=== PATIENT | male | born 1955 | race Caucasian/White ===

== ENCOUNTER 2018-04-23 08:46 | Inpatient (IN) | payer MEDICAID, OTHER ==
[2018-04-23] VITALS (7 sets, daily range): BP systolic 128–150; BP diastolic 70–100
[~2018-04-23] VITALS: Ht 185.4 cm; Wt 84.3 kg
[2018-04-23 10:29] LABS: BASOPHILS # (AUTO) 0.05 x10^3/uL (0-0.1); BASOPHILS % (AUTO) 1 % (0-1); EOSINOPHILS # (AUTO) 0.09 x10^3/uL (0-0.4); EOSINOPHILS % (AUTO) 1 % (1-7); LYMPHOCYTES # (AUTO) 0.78 x10^3/uL (1-3.4); LYMPHOCYTES % (AUTO) 9 % (22-44); MD NO; MEAN CORPUSCULAR HEMOGLOBIN 29.4 pg (27.5-34.5); MEAN CORPUSCULAR HGB CONC 32.7 g/dL (33.2-36.2); MEAN CORPUSCULAR VOLUME 89.8 fL (81-97); MEAN PLATELET VOLUME 8.3 fL (7.4-10.4); MONOCYTES # (AUTO) 0.53 x10^3/uL (0.2-0.8); MONOCYTES % (AUTO) 6 % (2-9); NEUTROPHILS # (AUTO) 7.52 x10^3/uL (1.8-6.8); NEUTROPHILS % (AUTO) 84 % (42-75); PLATELET COUNT 327 x10^3/uL (130-400); RED BLOOD COUNT 2.56 x10^6/uL (4.38-5.82); RED CELL DISTRIBUTION WIDTH 13.4 % (9.4-14.8)
[2018-04-23 10:41] LABS: ALBUMIN 3.5 g/dL (3.4-5.0)
[2018-04-23 10:45] LABS: CHLORIDE 105 mmol/L (98-107)
[2018-04-23 10:50] LABS: ALANINE AMINOTRANSFERASE 12 U/L (12-78); ALKALINE PHOSPHATASE 75 U/L (45-117); BILIRUBIN,TOTAL 0.4 mg/dL (0.2-1.0); TOTAL PROTEIN 9.3 g/dL (6.4-8.2)
[2018-04-23 11:06] LABS: ANION GAP 22 mmol/L (5-15)
--- NOTE | 2018-04-23 11:21 | NUR ---
FINANCIAL ADVISER: TO ROOM FROM LOBBY, VIA W/C
[2018-04-23] MEDS ORDERED: PANTOPRAZOLE 80 MG in SODIUM CHLORIDE 0.9% 50 ML IVPB ONE (11:39)
[2018-04-23] MEDS ORDERED: PANTOPRAZOLE 80 MG in SODIUM CHLORIDE 0.9% 100 ML IV SCH (11:39)
--- NOTE | 2018-04-23 11:45 | NUR ---
PT REPORTS 70LB WEIGHT LOSS OVER PAST MONTH, INCREASED GENERALIZED FATIGUE, NAUSEA, POOR APPETITE, BLOOD IN URINE. PT ON MONITOR, VSS, PIV ESTABLISHED AND LABS DRAWN. POC DISCUSSED AND QUESTIONS ANSWERED.
[2018-04-23] MEDS ORDERED: SODIUM POLY SULFONATE UDC 15 GM/60 ML PO ONE (12:30)
[2018-04-23] MEDS ORDERED: INSULIN REGULAR 100 UNITS/ML, 3ML VIAL IVPush ONE (12:30)
[2018-04-23] MEDS: SODIUM BICARB 8.4%, 50ML SYRINGE IVPush ONE (12:30)
[2018-04-23] MEDS ORDERED: SODIUM CHLORIDE FLUSH 10ML SYR IVF PRN (12:30)
[2018-04-23] MEDS ORDERED: DEXTROSE 50%, 50ML SYRINGE IVPush ONE (12:30)
[2018-04-23] MEDS ORDERED: CALCIUM CHLORIDE 10%, 10ML SYR IVPush ONE (12:30)
[2018-04-23] MEDS ORDERED: DEXTROSE 50%, 50ML SYRINGE ONE (12:37)
[2018-04-23] MEDS ORDERED: CALCIUM CHLORIDE 10%, 10ML SYR ONE (12:37)
[2018-04-23] MEDS ORDERED: INSULIN REGULAR 100 UNITS/ML, 3ML VIAL ONE (12:38)
--- NOTE | 2018-04-23 12:52 | NUR ---
LUNCH RN: LARGE BORE 18GPIV PLACED, PROTONIX BOLUS AND DRIP STARTED. SODIUM BICARB, INSULIN, DEXTROSE, CALCIUM CHLORIDE GIVEN IN PIV WITH NO ISSUE. PT VSS AT THIS TIME. NO EKG CHANGES.
[2018-04-23] MEDS ORDERED: LIDOCAINE 2%,20 ML JEL.PF.APP MM ONE ×2 (12:58→13:00)
[2018-04-23] MEDS ORDERED: SODIUM CHLORIDE FLUSH 10ML SYR IVF ONE (13:00)
--- NOTE | 2018-04-23 13:14 | NUR ---
LUNCH RN: SHETTY CATH INSERTED AT THIS TIME.
[2018-04-23 13:57] LABS: CULTURE INDICATED? YES; MICROSCOPIC INDICATED
[2018-04-23] MEDS ORDERED: LABETALOL 5MG/ML, 20ML IVPush PRN (14:00)
[2018-04-23] MEDS ORDERED: BISACODYL 10 MG SUPP PR PRN (14:00)
[2018-04-23] MEDS ORDERED: POLYETHYLENE GLYCOL 17 GM PACKET PO PRN (14:00)
[2018-04-23] MEDS ORDERED: ONDANSETRON ODT 4 MG PO PRN (14:00)
[2018-04-23] MEDS ORDERED: hydrALAzine 20 MG/ML, 1ML IVPush PRN (14:00)
[2018-04-23] MEDS ORDERED: DOCUSATE 100 MG CAPSULE PO PRN (14:00)
[2018-04-23 14:32] LABS: ANION GAP 19 mmol/L (5-15); CALCIUM 9.9 mg/dL (8.5-10.1); CHLORIDE 108 mmol/L (98-107)
[2018-04-23] MEDS: ONDANSETRON 2MG/ML, 2ML IVPush PRN (14:40)
[2018-04-23] MEDS ORDERED: ONDANSETRON 2MG/ML, 2ML ONE (14:40)
[2018-04-23] MEDS: PANTOPRAZOLE 40 MG IV IVPush SCH ×2 (17:07→21:14)
[2018-04-23] MEDS: LACTATED RINGERS 1,000 ML IV SCH (17:09)
[2018-04-23 20:13] LABS: OCCULT BLOOD POSITIVE (NEGATIVE)
[2018-04-23 21:31] LABS: ANION GAP 22 mmol/L (5-15); CALCIUM 9.9 mg/dL (8.5-10.1); CHLORIDE 110 mmol/L (98-107)
[2018-04-24] MEDS: LACTATED RINGERS 1,000 ML IV SCH ×3 (00:38→15:15)
[2018-04-24 01:27] VITALS: BP 122/78
[2018-04-24] MEDS: CEFTRIAXONE PMX 1GM/50ML 50 ML IV SCH (01:46)
[2018-04-24 05:32] LABS: MEAN CORPUSCULAR HEMOGLOBIN 29.2 pg (27.5-34.5); MEAN CORPUSCULAR HGB CONC 33.5 g/dL (33.2-36.2); MEAN CORPUSCULAR VOLUME 87.3 fL (81-97); MEAN PLATELET VOLUME 8.1 fL (7.4-10.4); PLATELET COUNT 258 x10^3/uL (130-400); RED BLOOD COUNT 2.68 x10^6/uL (4.38-5.82); RED CELL DISTRIBUTION WIDTH 15.7 % (9.4-14.8)
[2018-04-24 05:53] LABS: BASOPHILS # (AUTO) 0.03 x10^3/uL (0-0.1); BASOPHILS % (AUTO) 1 % (0-1); EOSINOPHILS # (AUTO) 0.13 x10^3/uL (0-0.4); EOSINOPHILS % (AUTO) 2 % (1-7); LYMPHOCYTES # (AUTO) 0.74 x10^3/uL (1-3.4); LYMPHOCYTES % (AUTO) 13 % (22-44); MD SCAN; MONOCYTES # (AUTO) 0.44 x10^3/uL (0.2-0.8); MONOCYTES % (AUTO) 8 % (2-9); NEUTROPHILS # (AUTO) 4.56 x10^3/uL (1.8-6.8); NEUTROPHILS % (AUTO) 77 % (42-75)
[2018-04-24 07:22] LABS: CHLORIDE 111 mmol/L (98-107)
[2018-04-24 07:41] LABS: % IRON SATURATION 33 % (20-55); ALANINE AMINOTRANSFERASE 12 U/L (12-78); ALBUMIN 2.9 g/dL (3.4-5.0); ALKALINE PHOSPHATASE 62 U/L (45-117); ANION GAP 18 mmol/L (5-15); BILIRUBIN,TOTAL 0.3 mg/dL (0.2-1.0); IRON LEVEL 76 mcg/dL (65-175); TOTAL IRON BINDING CAPACITY 230 mcg/dL (250-450); TOTAL PROTEIN 7.6 g/dL (6.4-8.2)
[2018-04-24 07:48] VITALS: BP 121/79
[2018-04-24] MEDS ORDERED: CEFTRIAXONE PMX 1GM/50ML 50 ML IV SCH (08:00)
[2018-04-24] MEDS: ONDANSETRON 2MG/ML, 2ML IVPush PRN ×2 (09:37→18:46)
[2018-04-24] MEDS: PANTOPRAZOLE 40 MG IV IVPush SCH ×2 (09:38→21:07)
[2018-04-24] MEDS ORDERED: DILTIAZEM 5 MG/ML, 5ML IVPush PRN (11:00)
[2018-04-24] MEDS ORDERED: DILTIAZEM 5 MG/ML, 10ML IVPush PRN (11:05)
[2018-04-24] MEDS: SODIUM BICARBONATE 650 MG TABLET PO SCH ×2 (11:25→21:07)
[2018-04-24] MEDS: ERGOCALCIFEROL 50,000 UNIT CAPSULE PO SCH (11:26)
[2018-04-24 13:26] VITALS: BP 103/71
[2018-04-24 19:43] VITALS: BP 128/86
[2018-04-25] VITALS (10 sets, daily range): BP systolic 116–150; BP diastolic 73–86
[2018-04-25] MEDS: LACTATED RINGERS 1,000 ML IV SCH ×2 (00:11→17:28)
[2018-04-25] MEDS: CEFTRIAXONE PMX 1GM/50ML 50 ML IV SCH (01:29)
[2018-04-25] MEDS: ONDANSETRON 2MG/ML, 2ML IVPush PRN (02:38)
[2018-04-25 06:30] LABS: CHLORIDE 107 mmol/L (98-107)
[2018-04-25 06:31] LABS: MEAN CORPUSCULAR HEMOGLOBIN 29.1 pg (27.5-34.5); MEAN CORPUSCULAR HGB CONC 33.6 g/dL (33.2-36.2); MEAN CORPUSCULAR VOLUME 86.6 fL (81-97); PLATELET COUNT 207 x10^3/uL (130-400); RED BLOOD COUNT 2.14 x10^6/uL (4.38-5.82); RED CELL DISTRIBUTION WIDTH 15.6 % (9.4-14.8)
[2018-04-25 06:51] LABS: BASOPHILS # (AUTO) 0.01 x10^3/uL (0-0.1); BASOPHILS % (AUTO) 0 % (0-1); EOSINOPHILS # (AUTO) 0.25 x10^3/uL (0-0.4); EOSINOPHILS % (AUTO) 4 % (1-7); LYMPHOCYTES # (AUTO) 0.49 x10^3/uL (1-3.4); LYMPHOCYTES % (AUTO) 7 % (22-44); MD MORPH REVIEW ONLY; MONOCYTES # (AUTO) 0.38 x10^3/uL (0.2-0.8); MONOCYTES % (AUTO) 5 % (2-9); NEUTROPHILS # (AUTO) 5.97 x10^3/uL (1.8-6.8); NEUTROPHILS % (AUTO) 84 % (42-75)
[2018-04-25 06:52] LABS: ANISOCYTOSIS 1+; OVALOCYTES 1+
[2018-04-25 06:53] LABS: <PLATELET ESTIMATE> ADEQUATE; <PLT MORPHOLOGY> NORMAL PLT MORPH; ECHINOCYTES 1+; TEAR DROPS 1+
[2018-04-25 07:01] LABS: ALANINE AMINOTRANSFERASE 13 U/L (12-78); ALBUMIN 2.4 g/dL (3.4-5.0); ALKALINE PHOSPHATASE 57 U/L (45-117); ANION GAP 18 mmol/L (5-15); BILIRUBIN,TOTAL 0.3 mg/dL (0.2-1.0); CALCIUM 8.1 mg/dL (8.5-10.1); TOTAL PROTEIN 6.5 g/dL (6.4-8.2)
[2018-04-25 09:31] LABS: % IRON SATURATION 23 % (20-55); IRON LEVEL 32 mcg/dL (65-175); TOTAL IRON BINDING CAPACITY 139 mcg/dL (250-450)
[2018-04-25] MEDS: SODIUM BICARBONATE 650 MG TABLET PO SCH ×2 (09:52→20:43)
[2018-04-25] MEDS: PANTOPRAZOLE 40 MG IV IVPush SCH ×2 (09:52→20:43)
[2018-04-25] MEDS ORDERED: PROMETHAZINE 25 MG/ML, 1ML IM PRN (11:30)
[2018-04-26 00:56] VITALS: BP 125/71
[2018-04-26] MEDS: CEFTRIAXONE PMX 1GM/50ML 50 ML IV SCH (01:24)
[2018-04-26] MEDS: LACTATED RINGERS 1,000 ML IV SCH ×3 (04:17→22:34)
[2018-04-26 05:02] LABS: ANION GAP 19 mmol/L (5-15); CALCIUM 8.1 mg/dL (8.5-10.1); CHLORIDE 106 mmol/L (98-107)
[2018-04-26 05:08] LABS: MEAN CORPUSCULAR HEMOGLOBIN 29.5 pg (27.5-34.5); MEAN CORPUSCULAR HGB CONC 34.5 g/dL (33.2-36.2); MEAN CORPUSCULAR VOLUME 85.5 fL (81-97); MEAN PLATELET VOLUME 8.3 fL (7.4-10.4); PLATELET COUNT 206 x10^3/uL (130-400); RED BLOOD COUNT 2.67 x10^6/uL (4.38-5.82); RED CELL DISTRIBUTION WIDTH 15.6 % (9.4-14.8)
[2018-04-26 05:57] LABS: BASOPHILS # (AUTO) 0.04 x10^3/uL (0-0.1); BASOPHILS % (AUTO) 0 % (0-1); EOSINOPHILS # (AUTO) 0.11 x10^3/uL (0-0.4); EOSINOPHILS % (AUTO) 1 % (1-7); LYMPHOCYTES # (AUTO) 1.37 x10^3/uL (1-3.4); LYMPHOCYTES % (AUTO) 15 % (22-44); MD SCAN; MONOCYTES # (AUTO) 0.82 x10^3/uL (0.2-0.8); MONOCYTES % (AUTO) 9 % (2-9); NEUTROPHILS # (AUTO) 6.63 x10^3/uL (1.8-6.8); NEUTROPHILS % (AUTO) 74 % (42-75)
[2018-04-26 08:30] VITALS: BP 134/76
[2018-04-26] MEDS: SODIUM BICARBONATE 650 MG TABLET PO SCH ×3 (09:23→21:42)
[2018-04-26] MEDS: PANTOPRAZOLE 40 MG IV IVPush SCH ×2 (09:23→21:41)
[2018-04-26 13:40] VITALS: BP 140/86
[2018-04-26] MEDS: METOPROLOL TARTRATE 25 MG TABLET PO SCH ×2 (15:51→21:42)
[2018-04-26 15:58] VITALS: BP 148/85
[2018-04-26 19:28] VITALS: BP 155/87
[2018-04-27] MEDS: CEFTRIAXONE PMX 1GM/50ML 50 ML IV SCH (00:50)
[2018-04-27 00:52] VITALS: BP 123/77
[2018-04-27 05:44] VITALS: BP 133/77
[2018-04-27] MEDS: METOPROLOL TARTRATE 25 MG TABLET PO SCH ×2 (05:48→17:36)
[2018-04-27 05:54] LABS: BASOPHILS # (AUTO) 0.06 x10^3/uL (0-0.1); BASOPHILS % (AUTO) 1 % (0-1); EOSINOPHILS # (AUTO) 0.18 x10^3/uL (0-0.4); EOSINOPHILS % (AUTO) 2 % (1-7); LYMPHOCYTES # (AUTO) 1.33 x10^3/uL (1-3.4); LYMPHOCYTES % (AUTO) 16 % (22-44); MD NO; MEAN CORPUSCULAR HEMOGLOBIN 29.7 pg (27.5-34.5); MEAN CORPUSCULAR HGB CONC 34.8 g/dL (33.2-36.2); MEAN CORPUSCULAR VOLUME 85.2 fL (81-97); MEAN PLATELET VOLUME 8.6 fL (7.4-10.4); MONOCYTES # (AUTO) 0.82 x10^3/uL (0.2-0.8); MONOCYTES % (AUTO) 10 % (2-9); NEUTROPHILS % (AUTO) 72 % (42-75); PLATELET COUNT 216 x10^3/uL (130-400); RED BLOOD COUNT 2.91 x10^6/uL (4.38-5.82); RED CELL DISTRIBUTION WIDTH 15.6 % (9.4-14.8)
[2018-04-27 06:03] LABS: ALBUMIN 2.4 g/dL (3.4-5.0); ANION GAP 15 mmol/L (5-15); CALCIUM 7.8 mg/dL (8.5-10.1); CHLORIDE 107 mmol/L (98-107)
[2018-04-27 07:25] VITALS: BP 143/87
[2018-04-27] MEDS: LACTATED RINGERS 1,000 ML IV SCH ×2 (09:35→21:17)
[2018-04-27] MEDS: PANTOPRAZOLE 40 MG IV IVPush SCH ×2 (09:36→21:17)
[2018-04-27] MEDS: SODIUM BICARBONATE 650 MG TABLET PO SCH ×3 (09:36→21:17)
[2018-04-27 13:40] VITALS: BP 128/80
[2018-04-27 20:16] VITALS: BP 158/90
[2018-04-27] MEDS: ACETAMINOPHEN 325 MG TABLET PO PRN (21:26)
[2018-04-28] MEDS: CEFTRIAXONE PMX 1GM/50ML 50 ML IV SCH (00:58)
[2018-04-28 02:10] VITALS: BP 128/85
[2018-04-28 06:08] VITALS: BP 131/82
[2018-04-28] MEDS: METOPROLOL TARTRATE 25 MG TABLET PO SCH ×2 (06:19→17:17)
[2018-04-28] MEDS: LACTATED RINGERS 1,000 ML IV SCH ×2 (06:19→17:17)
[2018-04-28 06:22] LABS: ALANINE AMINOTRANSFERASE 14 U/L (12-78); ALBUMIN 2.4 g/dL (3.4-5.0); ANION GAP 14 mmol/L (5-15); CALCIUM 7.4 mg/dL (8.5-10.1); CHLORIDE 106 mmol/L (98-107)
[2018-04-28 06:24] LABS: ALKALINE PHOSPHATASE 57 U/L (45-117); BILIRUBIN,TOTAL 0.4 mg/dL (0.2-1.0); TOTAL PROTEIN 6.4 g/dL (6.4-8.2)
[2018-04-28 06:31] LABS: BASOPHILS # (AUTO) 0.05 x10^3/uL (0-0.1); BASOPHILS % (AUTO) 1 % (0-1); EOSINOPHILS # (AUTO) 0.11 x10^3/uL (0-0.4); EOSINOPHILS % (AUTO) 1 % (1-7); LYMPHOCYTES % (AUTO) 12 % (22-44); MD NO; MEAN CORPUSCULAR HEMOGLOBIN 28.2 pg (27.5-34.5); MEAN CORPUSCULAR HGB CONC 32.6 g/dL (33.2-36.2); MEAN CORPUSCULAR VOLUME 86.6 fL (81-97); MEAN PLATELET VOLUME 8.8 fL (7.4-10.4); MONOCYTES % (AUTO) 10 % (2-9); NEUTROPHILS # (AUTO) 6.11 x10^3/uL (1.8-6.8); NEUTROPHILS % (AUTO) 76 % (42-75); PLATELET COUNT 214 x10^3/uL (130-400); RED BLOOD COUNT 2.98 x10^6/uL (4.38-5.82); RED CELL DISTRIBUTION WIDTH 15.3 % (9.4-14.8)
[2018-04-28 06:45] VITALS: BP 122/82
[2018-04-28] MEDS: PANTOPRAZOLE 40 MG IV IVPush SCH ×2 (09:18→21:00)
[2018-04-28] MEDS: ONDANSETRON 2MG/ML, 2ML IVPush PRN (09:18)
[2018-04-28] MEDS: SODIUM BICARBONATE 650 MG TABLET PO SCH ×3 (09:19→20:59)
[2018-04-28 13:06] VITALS: BP 132/85
[2018-04-28 21:40] VITALS: BP 143/80
[2018-04-29] MEDS: CEFTRIAXONE PMX 1GM/50ML 50 ML IV SCH (00:37)
[2018-04-29] MEDS: ACETAMINOPHEN 325 MG TABLET PO PRN (00:38)
[2018-04-29] MEDS: LACTATED RINGERS 1,000 ML IV SCH ×2 (02:19→12:05)
[2018-04-29 05:14] VITALS: BP 132/81
[2018-04-29] MEDS: METOPROLOL TARTRATE 25 MG TABLET PO SCH ×2 (05:23→16:35)
[2018-04-29 06:01] LABS: BASOPHILS # (AUTO) 0.03 x10^3/uL (0-0.1); BASOPHILS % (AUTO) 0 % (0-1); EOSINOPHILS # (AUTO) 0.12 x10^3/uL (0-0.4); EOSINOPHILS % (AUTO) 2 % (1-7); LYMPHOCYTES # (AUTO) 0.77 x10^3/uL (1-3.4); LYMPHOCYTES % (AUTO) 10 % (22-44); MD NO; MEAN CORPUSCULAR HEMOGLOBIN 29.5 pg (27.5-34.5); MEAN CORPUSCULAR HGB CONC 34.3 g/dL (33.2-36.2); MEAN CORPUSCULAR VOLUME 86.1 fL (81-97); MEAN PLATELET VOLUME 8.5 fL (7.4-10.4); MONOCYTES # (AUTO) 0.77 x10^3/uL (0.2-0.8); MONOCYTES % (AUTO) 10 % (2-9); NEUTROPHILS % (AUTO) 78 % (42-75); PLATELET COUNT 195 x10^3/uL (130-400); RED BLOOD COUNT 2.71 x10^6/uL (4.38-5.82)
[2018-04-29 06:16] LABS: CHLORIDE 103 mmol/L (98-107)
[2018-04-29 06:30] LABS: ALANINE AMINOTRANSFERASE 13 U/L (12-78); ALBUMIN 2.5 g/dL (3.4-5.0); ALKALINE PHOSPHATASE 58 U/L (45-117); ANION GAP 14 mmol/L (5-15); BILIRUBIN,TOTAL 0.3 mg/dL (0.2-1.0); CALCIUM 7.6 mg/dL (8.5-10.1); TOTAL PROTEIN 6.5 g/dL (6.4-8.2)
[2018-04-29 07:23] VITALS: BP 152/76
[2018-04-29] MEDS: PANTOPRAZOLE 40 MG IV IVPush SCH ×2 (09:08→20:40)
[2018-04-29] MEDS: SODIUM BICARBONATE 650 MG TABLET PO SCH ×3 (09:08→20:40)
[2018-04-29 13:02] VITALS: BP 115/81
[2018-04-29 21:09] VITALS: BP 143/89
[2018-04-30] MEDS: ACETAMINOPHEN 325 MG TABLET PO PRN (01:02)
[2018-04-30] MEDS: CEFTRIAXONE PMX 1GM/50ML 50 ML IV SCH (01:03)
[2018-04-30] MEDS: LACTATED RINGERS 1,000 ML IV SCH (02:05)
[2018-04-30 03:55] VITALS: BP 141/75
[2018-04-30 05:42] LABS: BASOPHILS # (AUTO) 0.03 x10^3/uL (0-0.1); BASOPHILS % (AUTO) 0 % (0-1); EOSINOPHILS # (AUTO) 0.14 x10^3/uL (0-0.4); EOSINOPHILS % (AUTO) 2 % (1-7); INTERNATIONAL NORMALIZED RATIO 1.21 (0.93-1.1); LYMPHOCYTES # (AUTO) 0.69 x10^3/uL (1-3.4); LYMPHOCYTES % (AUTO) 9 % (22-44); MD NO; MEAN CORPUSCULAR HEMOGLOBIN 29.4 pg (27.5-34.5); MEAN CORPUSCULAR HGB CONC 34.1 g/dL (33.2-36.2); MEAN CORPUSCULAR VOLUME 86.2 fL (81-97); MEAN PLATELET VOLUME 8.8 fL (7.4-10.4); MONOCYTES # (AUTO) 0.73 x10^3/uL (0.2-0.8); MONOCYTES % (AUTO) 9 % (2-9); NEUTROPHILS # (AUTO) 6.24 x10^3/uL (1.8-6.8); NEUTROPHILS % (AUTO) 80 % (42-75); PLATELET COUNT 201 x10^3/uL (130-400); PROTHROMBIN TIME 12.7 Seconds (9.6-11.5); RED BLOOD COUNT 2.65 x10^6/uL (4.38-5.82)
[2018-04-30 05:46] LABS: ALBUMIN 2.4 g/dL (3.4-5.0); ANION GAP 13 mmol/L (5-15); CALCIUM 7.2 mg/dL (8.5-10.1); CHLORIDE 100 mmol/L (98-107)
[2018-04-30 05:51] LABS: ALANINE AMINOTRANSFERASE 13 U/L (12-78); ALKALINE PHOSPHATASE 55 U/L (45-117); BILIRUBIN,TOTAL 0.3 mg/dL (0.2-1.0); CREATININE 9.89 mg/dL (0.7-1.3); TOTAL PROTEIN 6.3 g/dL (6.4-8.2)
[2018-04-30] MEDS: METOPROLOL TARTRATE 25 MG TABLET PO SCH ×2 (05:53→16:36)
[2018-04-30] MEDS ORDERED: POTASSIUM CHLORIDE 20 MEQ TAB.ER.PRT PO ONE (07:00)
[2018-04-30 07:29] VITALS: BP 126/78
[2018-04-30] MEDS: PANTOPRAZOLE 40 MG IV IVPush SCH ×2 (08:38→20:28)
[2018-04-30] MEDS: SODIUM BICARBONATE 650 MG TABLET PO SCH ×3 (08:38→20:28)
[2018-04-30] MEDS: POTASSIUM CHLORIDE 20 MEQ TAB.ER.PRT PO SCH ×2 (10:00→20:28)
[2018-04-30] MEDS ORDERED: GOLYTELY 4,000ML ORAL.SOL PO ONE (12:30)
[2018-04-30] MEDS: METRONIDAZOLE PMX 500MG/100ML 100 ML IV SCH ×2 (13:07→20:31)
[2018-04-30 15:53] VITALS: BP 134/80
[2018-04-30 19:49] VITALS: BP 143/88
[2018-05-01 01:06] VITALS: BP 158/78
[2018-05-01 05:10] VITALS: BP 131/78
[2018-05-01 05:14] LABS: BASOPHILS # (AUTO) 0.04 x10^3/uL (0-0.1); BASOPHILS % (AUTO) 1 % (0-1); EOSINOPHILS % (AUTO) 1 % (1-7); LYMPHOCYTES # (AUTO) 0.71 x10^3/uL (1-3.4); LYMPHOCYTES % (AUTO) 9 % (22-44); MD NO; MEAN CORPUSCULAR HEMOGLOBIN 29.4 pg (27.5-34.5); MEAN CORPUSCULAR HGB CONC 33.8 g/dL (33.2-36.2); MEAN CORPUSCULAR VOLUME 86.9 fL (81-97); MEAN PLATELET VOLUME 9.1 fL (7.4-10.4); MONOCYTES # (AUTO) 0.83 x10^3/uL (0.2-0.8); MONOCYTES % (AUTO) 10 % (2-9); NEUTROPHILS # (AUTO) 6.46 x10^3/uL (1.8-6.8); NEUTROPHILS % (AUTO) 79 % (42-75); PLATELET COUNT 208 x10^3/uL (130-400); RED BLOOD COUNT 2.76 x10^6/uL (4.38-5.82); RED CELL DISTRIBUTION WIDTH 15.2 % (9.4-14.8)
[2018-05-01] MEDS: METOPROLOL TARTRATE 25 MG TABLET PO SCH ×2 (05:14→18:04)
[2018-05-01] MEDS: METRONIDAZOLE PMX 500MG/100ML 100 ML IV SCH ×2 (05:14→12:36)
[2018-05-01 05:23] LABS: ALBUMIN 2.6 g/dL (3.4-5.0); ANION GAP 13 mmol/L (5-15); CALCIUM 7.5 mg/dL (8.5-10.1); CHLORIDE 103 mmol/L (98-107)
[2018-05-01 05:26] LABS: ALANINE AMINOTRANSFERASE 13 U/L (12-78); ALKALINE PHOSPHATASE 54 U/L (45-117); BILIRUBIN,TOTAL 0.3 mg/dL (0.2-1.0); CREATININE 9.57 mg/dL (0.7-1.3); TOTAL PROTEIN 6.8 g/dL (6.4-8.2)
[2018-05-01 07:35] VITALS: BP 131/95
[2018-05-01] MEDS ORDERED: FENTANYL PF 100 MCG/2ML IV PRN (08:30)
[2018-05-01] MEDS ORDERED: ONDANSETRON 2MG/ML, 2ML IV PRN (08:30)
[2018-05-01] MEDS: SODIUM BICARBONATE 650 MG TABLET PO SCH ×2 (09:44→16:00)
[2018-05-01] MEDS: ERGOCALCIFEROL 50,000 UNIT CAPSULE PO SCH (09:44)
[2018-05-01] MEDS: POTASSIUM CHLORIDE 20 MEQ TAB.ER.PRT PO SCH (09:44)
[2018-05-01] MEDS: PANTOPRAZOLE 40 MG IV IVPush SCH (09:44)
[2018-05-01] MEDS ORDERED: PROPOFOL 10 MG/ML, 50ML ONE (11:02)
[2018-05-01 15:25] VITALS: BP 129/73
[2018-05-01] MEDS ORDERED: RANI-448 PO (16:45)
[2018-05-01] MEDS ORDERED: METO25TA35 PO (16:45)
[2018-05-01] MEDS ORDERED: SODI650T PO (16:45)
[2018-05-01] MEDS ORDERED: ERGO500017 PO (16:45)
[2018-05-01] MEDS ORDERED: METR500T PO (16:45)
== END 2018-05-01 18:11 | disposition home or self-care (01) | DRG 377 ==
LOC: ED 12:27 → EDIP 12:30 → 4WST 15:49
PROVIDERS: ADMIT Internal Medicine; ATTEND Internal Medicine
PROC: 30233N1 Transfusion of Nonautologous Red Blood Cells into Peripheral Vein, Percutaneous Approach (ICD-10-PCS; principal; 2018-04-23)
PROC: 0DB68ZX Excision of Stomach, Via Natural or Artificial Opening Endoscopic, Diagnostic (ICD-10-PCS; 2018-04-23)
DX: K57.31 Diverticulosis of large intestine without perforation or abscess with bleeding (principal); E43 Unspecified severe protein-calorie malnutrition; N17.9 Acute kidney failure, unspecified; E87.2 Acidosis; E87.1 Hypo-osmolality and hyponatremia; D62 Acute posthemorrhagic anemia; N13.8 Other obstructive and reflux uropathy; N13.6 Pyonephrosis; K64.0 First degree hemorrhoids; I48.0 Paroxysmal atrial fibrillation; N32.0 Bladder-neck obstruction; R53.81 Other malaise; E87.5 Hyperkalemia; E83.39 Other disorders of phosphorus metabolism; N40.1 Benign prostatic hyperplasia with lower urinary tract symptoms; M47.9 Spondylosis, unspecified; N18.9 Chronic kidney disease, unspecified; R33.8 Other retention of urine; N28.1 Cyst of kidney, acquired; E87.6 Hypokalemia; I12.9 Hypertensive chronic kidney disease with stage 1 through stage 4 chronic kidney disease, or unspecified chronic kidney disease; I45.10 Unspecified right bundle-branch block; K29.80 Duodenitis without bleeding; Z68.24 Body mass index [BMI] 24.0-24.9, adult; Z80.42 Family history of malignant neoplasm of prostate
CPT/HCPCS: 36415; 36430; 51702; 71046; 74176; 80048; 80053; 80069; 81001; 82272; 82306; 82728; 83540; 83550; 83735; 83970; 84100; 84145; 85014; 85018; 85025; 85610; 85730; 86850; 86900; 86923; 87086; 88305; 93005; 93306; 96365; 96366; 96376; 99291; G0378; J0696; J2405; J2550; J2704; C9113; J7120; P9016

== ENCOUNTER → 2018-10-22 | Outpatient (CLI) | payer MEDICAID ==
[~2018-10-22] MED LIST: CALC667C PO; ERGO500017 PO; FINA5TAB4 PO; METO25TA35 PO; METR500T PO; RANI-448 PO; SODI650T PO
[2018-10-22 09:29] LABS: BASOPHILS % (AUTO) 2 % (0-1); EOSINOPHILS # (AUTO) 0.11 x10^3/uL (0-0.4); EOSINOPHILS % (AUTO) 2 % (1-7); LYMPHOCYTES # (AUTO) 1.55 x10^3/uL (1-3.4); LYMPHOCYTES % (AUTO) 26 % (22-44); MD NO; MEAN CORPUSCULAR HEMOGLOBIN 30.1 pg (27.5-34.5); MEAN CORPUSCULAR HGB CONC 32.7 g/dL (33.2-36.2); MEAN PLATELET VOLUME 7.9 fL (7.4-10.4); MONOCYTES # (AUTO) 0.45 x10^3/uL (0.2-0.8); MONOCYTES % (AUTO) 8 % (2-9); NEUTROPHILS # (AUTO) 3.72 x10^3/uL (1.8-6.8); NEUTROPHILS % (AUTO) 63 % (42-75); PLATELET COUNT 246 x10^3/uL (130-400); RED BLOOD COUNT 3.64 x10^6/uL (4.38-5.82); RED CELL DISTRIBUTION WIDTH 17.1 % (9.4-14.8)
[2018-10-22 09:41] LABS: INTERNATIONAL NORMALIZED RATIO 1.04 (0.93-1.1); PROTHROMBIN TIME 10.9 Seconds (9.6-11.5)
[2018-10-22 09:42] LABS: ALANINE AMINOTRANSFERASE 15 U/L (12-78); ALBUMIN 4.1 g/dL (3.4-5.0); ANION GAP 11 mmol/L (5-15); CALCIUM 9.6 mg/dL (8.5-10.1); CHLORIDE 97 mmol/L (98-107); CREATININE 8.93 mg/dL (0.7-1.3)
[2018-10-22 09:44] LABS: ALKALINE PHOSPHATASE 65 U/L (45-117); BILIRUBIN,TOTAL 0.6 mg/dL (0.2-1.0); TOTAL PROTEIN 7.9 g/dL (6.4-8.2)
== END | disposition home or self-care (01) ==
LOC: STAR 08:33
PROVIDERS: ATTEND Surgery Vascular Surgery
DX: Z01.818 Encounter for other preprocedural examination (principal); K42.9 Umbilical hernia without obstruction or gangrene; I45.10 Unspecified right bundle-branch block
CPT/HCPCS: 36415; 80053; 85025; 85610; 85730; 93005

== ENCOUNTER 2018-10-27 06:10 | Day surgery (SDC) | payer MEDICAID ==
[~2018-10-27] VITALS: Ht 185.4 cm; Wt 89.3 kg
[2018-10-27 06:52] VITALS: BP 117/78
[2018-10-27] MEDS ORDERED: SODIUM CHLORIDE 0.9% 1,000 ML IV SCH (06:53)
[2018-10-27] MEDS ORDERED: HEPARIN 1,000 UNITS/ML, 10ML ONE (07:08)
[2018-10-27] MEDS ORDERED: BACITRACIN 50,000 UNIT ONE (07:08)
[2018-10-27] MEDS ORDERED: BUPIVACAINE/PF-EPI 0.5% 1:200K ONE (07:08)
[2018-10-27] MEDS ORDERED: FENTANYL PF 250 MCG/5ML ONE (07:20)
[2018-10-27 07:31] LABS: ANION GAP 15 mmol/L (5-15); CALCIUM 9.3 mg/dL (8.5-10.1); CHLORIDE 104 mmol/L (98-107)
[2018-10-27] MEDS ORDERED: LABETALOL 5MG/ML, 20ML IV PRN (08:00)
[2018-10-27] MEDS ORDERED: OXYcodone 5 MG/5 ML ORAL.SOL UDC PO PRN (08:00)
[2018-10-27] MEDS ORDERED: FENTANYL PF 100 MCG/2ML IV PRN (08:00)
[2018-10-27] MEDS ORDERED: HYDROmorphone 2 MG/ML, 1ML IVPush PRN (08:00)
[2018-10-27] MEDS ORDERED: hydrALAzine 20 MG/ML, 1ML IV PRN (08:00)
[2018-10-27] MEDS ORDERED: DIAZEPAM 5 MG/ML, 2ML IVPush PRN (08:00)
[2018-10-27] MEDS ORDERED: PROMETHAZINE 25 MG/ML, 1ML IV PRN (08:00)
[2018-10-27] MEDS ORDERED: ALBUTEROL SULFATE 2.5 MG/3 ML NPPB PRN (08:00)
[2018-10-27] MEDS ORDERED: ACETAMINOPHEN 325 MG TABLET PO PRN (08:00)
[2018-10-27] MEDS ORDERED: ROCURONIUM 10MG/ML,5ML ONE (08:05)
[2018-10-27] MEDS ORDERED: ONDANSETRON 2MG/ML, 2ML ONE (08:05)
[2018-10-27] MEDS ORDERED: NEOSTIGMINE 1 MG/ML, 10ML ONE (08:05)
[2018-10-27] MEDS ORDERED: SUGAMMADEX 200 MG/2 ML IVPush ONE (08:05)
[2018-10-27] MEDS ORDERED: GLYCOPYRROLATE 0.2MG/1ML, 5ML ONE (08:05)
[2018-10-27] MEDS ORDERED: DEXAMETHASONE 4 MG/ML, 1ML ONE (08:05)
[2018-10-27] MEDS ORDERED: CEFAZOLIN 1,000 MG ONE (08:05)
[2018-10-27] MEDS ORDERED: SUCCINYLCHOLINE 20 MG/ML, 10ML ONE (08:05)
[2018-10-27] MEDS ORDERED: PROPOFOL 10 MG/ML, 20ML ONE (08:05)
== END 2018-10-27 09:35 | disposition home or self-care (01) ==
LOC: OUT 06:10
PROVIDERS: ATTEND Surgery Vascular Surgery
DX: N18.6 End stage renal disease (principal); K42.9 Umbilical hernia without obstruction or gangrene; N40.0 Benign prostatic hyperplasia without lower urinary tract symptoms; Z79.899 Other long term (current) drug therapy; Z88.6 Allergy status to analgesic agent; Z80.42 Family history of malignant neoplasm of prostate; Z82.49 Family history of ischemic heart disease and other diseases of the circulatory system
CPT/HCPCS: 36415; 49324; 49585; 80048; 93005; C1750; J0690; J1100; J1644; J2405; J2704; J3010; J7030; J2710; J0330